=== PATIENT | female | born 1990 | race Caucasian/White ===

== ENCOUNTER 2020-07-04 19:37 | Emergency (ER) | payer OTHER ==
[~2020-07-04] VITALS: Ht 160 cm; Wt 81.7 kg
[2020-07-04] MEDS ORDERED: TRIAMCINOLONE A80 G2 TOP (20:31)
[2020-07-04] MEDS ORDERED: MEDROLDOSEPACK PO (20:31)
[2020-07-04 21:12] VITALS: BP 155/79
== END 2020-07-04 21:13 | disposition home or self-care (01) ==
LOC: M.ERS 19:37
DX: M79.642 Pain in left hand (principal); F17.210 Nicotine dependence, cigarettes, uncomplicated